=== PATIENT | male | born 1960 | race Caucasian/White ===

== ENCOUNTER → 2016-11-18 | Outpatient (CLI) | payer OTHER | LOC: HEART CORB 09:00 | DX: I25.10 Atherosclerotic heart disease of native coronary artery without angina pectoris (principal); E78.5 Hyperlipidemia, unspecified; I10 Essential (primary) hypertension; I25.2 Old myocardial infarction; R07.2 Precordial pain; E11.9 Type 2 diabetes mellitus without complications; Z95.828 Presence of other vascular implants and grafts | CPT/HCPCS: 78452; 93306; A9502; J2785 ==